=== PATIENT | male | born 1975 | race Two or more races ===

== ENCOUNTER 2018-09-26 10:23 | Inpatient (IN) | payer MEDICAID ==
[~2018-09-26] VITALS: Ht 167.6 cm; Wt 69.9 kg
[2018-09-26 13:08] LABS: BASOPHILS % 0.9 % (0.0-2.0); EOSINOPHILS % 14.5 % (0.0-5.0); HEMATOCRIT. 35.8 % (42.0-52.0); HEMOGLOBIN. 11.9 g/dL (14.0-18.0); LYMPHOCYTES % 21.1 % (20.0-50.0); MEAN CORPUSCULAR HEMOGLOBIN 31.2 pg (28.0-32.0); MEAN CORPUSCULAR VOLUME 93.6 fL (80.0-94.0); MONOCYTES % 5.4 % (2.0-8.0); NEUTROPHILS % 58.1 % (40.0-76.0); PLATELET 277 x1000/uL (130-400); RED BLOOD CELL COUNT 3.83 mill/uL (4.7-6.1); RED CELL DISTRIBUTION WIDTH 15.6 % (11.6-14.6)
[2018-09-26 13:15] LABS: CHLORIDE 100 mEq/L (98-107)
[2018-09-26 13:17] LABS: INR 1.1; PARTIAL THROMBOPLASTIN TIME 27.9 sec (23.4-31.0); PROTHROMBIN TIME 11.1 sec (9.6-11.0)
[2018-09-26] MEDS ORDERED: SODIUM POLYSTYRENE SULFONATE 15 G/60 ML BOT PO ONE (13:30)
[2018-09-26] MEDS ORDERED: CALCIUM CHLORIDE 1GM/10ML SYR IV ONE (13:30)
[2018-09-26] MEDS ORDERED: DEXTROSE 50% WATER 50ML SYRINGE IV ONE (13:30)
[2018-09-26] MEDS ORDERED: SODIUM BICARBONATE 8.4% 1 MEQ/ML 50ML SYR IV ONE (13:30)
[2018-09-26] MEDS ORDERED: INSULIN REGULAR (HUMULIN R) 300UNITS/3ML IV ONE (13:30)
[2018-09-26] MEDS ORDERED: ALBUTEROL (0.083%) 2.5MG/3ML NEB HHN ONE (13:30)
[2018-09-26] MEDS ORDERED: ACETAMINOPHEN 325MG TABLET PO PRN (14:45)
[2018-09-26] MEDS ORDERED: ONDANSETRON HCL 4MG/2ML INJ IV PRN (14:45)
[2018-09-26] MEDS ORDERED: CLONIDINE 0.1MG TABLET PO PRN (14:45)
[2018-09-26] MEDS ORDERED: LOSARTAN POTASSIUM 100 MG TABLET PO SCH (18:00)
[2018-09-26 20:00] VITALS: BP 170/107
[2018-09-26] MEDS: AMLODIPINE 5MG TABLET PO SCH (21:00)
[2018-09-27] VITALS: BP 151/74
[2018-09-27 04:00] VITALS: BP 162/72
[2018-09-27] MEDS ORDERED: LOSA25TA12 PO (04:23)
[2018-09-27] MEDS ORDERED: CALC667T5 PO (04:24)
[2018-09-27] MEDS ORDERED: NEPVIT MT (04:25)
[2018-09-27] MEDS ORDERED: CARV3.1242 PO (04:28)
[2018-09-27 07:43] LABS: BASOPHILS % 0.8 % (0.0-2.0); EOSINOPHILS % 11.1 % (0.0-5.0); HEMATOCRIT. 34.2 % (42.0-52.0); HEMOGLOBIN. 11.5 g/dL (14.0-18.0); LYMPHOCYTES % 17.7 % (20.0-50.0); MEAN CORPUSCULAR HEMOGLOBIN 31.3 pg (28.0-32.0); MEAN CORPUSCULAR VOLUME 93.2 fL (80.0-94.0); MEAN PLATELET VOLUME 7.4 fl (7.4-10.4); MONOCYTES % 6.1 % (2.0-8.0); NEUTROPHILS % 64.3 % (40.0-76.0); PLATELET 285 x1000/uL (130-400); RED BLOOD CELL COUNT 3.67 mill/uL (4.7-6.1); RED CELL DISTRIBUTION WIDTH 15.6 % (11.6-14.6)
[2018-09-27 08:00] VITALS: BP 107/56
[2018-09-27] MEDS: AMLODIPINE 5MG TABLET PO SCH (08:29)
[2018-09-27 10:57] VITALS: BP 107/56
[2018-09-27 12:00] VITALS: BP 125/65
== END 2018-09-27 12:58 | disposition home or self-care (01) | DRG 425 ==
LOC: ER 10:23 → 6WST 14:05 → ENRESERV 15:21
PROVIDERS: ADMIT Internal Medicine; ATTEND Internal Medicine
PROC: 5A1D70Z Performance of Urinary Filtration, Intermittent, Less than 6 Hours Per Day (ICD-10-PCS; principal; 2018-09-26)
DX: E87.5 Hyperkalemia (principal); I12.0 Hypertensive chronic kidney disease with stage 5 chronic kidney disease or end stage renal disease; N18.6 End stage renal disease; D63.8 Anemia in other chronic diseases classified elsewhere; Z99.2 Dependence on renal dialysis
CPT/HCPCS: 36415; 71045; 80048; 83880; 84484; 93005; 93970; 94644; 96374; 96375; 99285; J1815; J3490; J7611

== ENCOUNTER 2019-12-28 19:28 | Emergency (ER) | payer MEDICAID ==
[~2019-12-28] VITALS: Ht 154.9 cm; Wt 58.0 kg
[~2019-12-28 19:28] MED LIST: CALC667T6 PO; CARV3.1242 PO; LOSA25TA26 PO; NEPVIT MT
[2019-12-28] MEDS ORDERED: HYDROCODONE/ACETAMINOPHEN 5/325MG TABLET PO ONE (20:30)
[2019-12-28 23:14] VITALS: BP 132/83
== END 2019-12-28 23:15 | disposition home or self-care (01) ==
LOC: ER 19:28
DX: M25.562 Pain in left knee (principal); M25.561 Pain in right knee; I12.0 Hypertensive chronic kidney disease with stage 5 chronic kidney disease or end stage renal disease; N18.6 End stage renal disease; Z79.899 Other long term (current) drug therapy; Z98.890 Other specified postprocedural states; Z99.2 Dependence on renal dialysis; Z95.5 Presence of coronary angioplasty implant and graft
CPT/HCPCS: 73562; 99283

== ENCOUNTER 2019-12-29 22:54 | Emergency (ER) | payer MEDICAID ==
[~2019-12-29] VITALS: Ht 177.8 cm; Wt 54.0 kg
[2019-12-29] MEDS ORDERED: METHOCARBAMOL 750MG TABLET PO SCH (23:15)
[2019-12-29] MEDS ORDERED: ACETAMINOPHEN WITH CODEINE 300/30MG TABLET PO ONE (23:15)
[2019-12-29] MEDS ORDERED: KETOROLAC 30MG/ML VIAL IV ONE (23:15)
[2019-12-29 23:40] LABS: CHLORIDE 95 mEq/L (98-107)
[2019-12-30 00:33] LABS: BASOPHILS % 0.5 % (0.0-2.0); EOSINOPHILS % 8.9 % (0.0-5.0); HEMATOCRIT. 42.4 % (42.0-52.0); HEMOGLOBIN. 14.2 g/dL (14.0-18.0); LYMPHOCYTES % 7.7 % (20.0-50.0); MEAN CORPUSCULAR HEMOGLOBIN 32.4 pg (28.0-32.0); MEAN CORPUSCULAR VOLUME 96.4 fL (80.0-94.0); NEUTROPHILS % 78.9 % (40.0-76.0); PLATELET 180 x1000/uL (130-400); RED BLOOD CELL COUNT 4.39 mill/uL (4.7-6.1); RED CELL DISTRIBUTION WIDTH 14.6 % (11.6-14.6)
[2019-12-30 03:54] VITALS: BP 121/70
== END 2019-12-30 04:05 | disposition home or self-care (01) ==
LOC: ER 22:54
DX: M25.562 Pain in left knee (principal); M25.561 Pain in right knee; I12.0 Hypertensive chronic kidney disease with stage 5 chronic kidney disease or end stage renal disease; N18.6 End stage renal disease; Z99.2 Dependence on renal dialysis
CPT/HCPCS: 36415; 73562; 80053; 84484; 85025; 96374; 99285; J1885

== ENCOUNTER 2020-10-27 14:13 | Emergency (ER) | payer MEDICAID, OTHER ==
[~2020-10-27] VITALS: Ht 175.3 cm; Wt 69.0 kg
[2020-10-27] MEDS ORDERED: HYDROCODONE/ACETAMINOPHEN 5/325MG TABLET PO STA (14:32)
[2020-10-27] MEDS ORDERED: HYDR-4001 MT (14:45)
[2020-10-27 15:05] VITALS: BP 151/88
== END 2020-10-27 15:18 | disposition home or self-care (01) ==
LOC: ER 14:13
DX: M54.9 Dorsalgia, unspecified (principal); I10 Essential (primary) hypertension; Z98.890 Other specified postprocedural states
CPT/HCPCS: 71045; 99283

== ENCOUNTER 2021-05-20 15:44 | Emergency (ER) | payer MEDICAID, OTHER ==
[~2021-05-20] VITALS: Ht 165.1 cm; Wt 66.0 kg
[~2021-05-20 15:44] MED LIST changes: +HYDR-4001 MT
[2021-05-20 15:51] VITALS: BP 140/81
[2021-05-20] MEDS ORDERED: ACETAMINOPHEN 325MG TABLET PO ONE (17:45)
[2021-05-20] MEDS ORDERED: TOPUD MT (20:20)
== END 2021-05-20 21:20 | disposition home or self-care (01) ==
LOC: ER 15:44
DX: M25.561 Pain in right knee (principal)
CPT/HCPCS: 73562; 99283

== ENCOUNTER 2022-01-18 09:39 | Emergency (ER) | payer OTHER ==
[~2022-01-18] VITALS: Ht 177.8 cm; Wt 75.0 kg
[~2022-01-18 09:39] MED LIST changes: +TOPUD MT
[2022-01-18] MEDS ORDERED: VANCOMYCIN 1G PREMIX 200 ML IV SCH (12:15)
[2022-01-18] MEDS ORDERED: PIPERACILLIN/TAZ 3.375G PREMIX 50 ML IV ONE (12:15)
[2022-01-18 12:29] LABS: HEMATOCRIT. 37.2 % (42.0-52.0); HEMOGLOBIN. 12.3 g/dL (14.0-18.0); MEAN CORPUSCULAR HEMOGLOBIN 31.8 pg (28.0-32.0); MEAN CORPUSCULAR VOLUME 96.4 fL (80.0-94.0); MEAN PLATELET VOLUME 7.1 fl (7.4-10.4); PLATELET 172 x1000/uL (130-400); RED BLOOD CELL COUNT 3.86 mill/uL (4.7-6.1); RED CELL DISTRIBUTION WIDTH 15.2 % (11.6-14.6)
[2022-01-18 12:37] LABS: CHLORIDE 97 mEq/L (98-107)
[2022-01-18 12:40] LABS: PROTHROMBIN TIME 10.9 sec (9.6-11.0)
[2022-01-18] MEDS ORDERED: CEPH500C2 MT (13:41)
[2022-01-18 13:47] VITALS: BP 164/91
[2022-01-18 14:14] LABS: PLATELET ESTIMATE NORMAL
== END 2022-01-18 14:07 | disposition home or self-care (01) ==
LOC: ER 09:39 → CANBEDREQ 14:26
DX: M79.672 Pain in left foot (principal); I10 Essential (primary) hypertension; Z79.899 Other long term (current) drug therapy
CPT/HCPCS: 36415; 73630; 80053; 85025; 85610; 86850; 86900; 86901; 87040; 96365; 96368; 99284; J2543; J3370

== ENCOUNTER 2022-02-11 14:22 | Emergency (ER) | payer OTHER ==
[~2022-02-11] VITALS: Ht 165.1 cm; Wt 70.0 kg
[~2022-02-11 14:22] MED LIST changes: +CEPH500C2 MT
[2022-02-11 14:33] VITALS: BP 189/87
== END 2022-02-11 18:20 | disposition home or self-care (01) ==
LOC: ER 14:22
DX: B07.0 Plantar wart (principal); I12.0 Hypertensive chronic kidney disease with stage 5 chronic kidney disease or end stage renal disease; N18.6 End stage renal disease; Z99.2 Dependence on renal dialysis
CPT/HCPCS: 99281

== ENCOUNTER 2023-09-22 19:21 | Emergency (ER) | payer MEDICAID, OTHER ==
[~2023-09-22] VITALS: Ht 167.6 cm; Wt 58.0 kg
[2023-09-22 19:27] VITALS: O2SAT 97
[2023-09-22] MEDS: ACETAMINOPHEN 325MG TABLET PO ONE (20:40)
[2023-09-22 21:17] VITALS: BP 133/85; PULSE 80; RESP 15; TEMP 98.1
== END 2023-09-22 21:27 | disposition home or self-care (01) ==
LOC: ER 19:21
DX: M79.642 Pain in left hand (principal); M79.641 Pain in right hand; M17.0 Bilateral primary osteoarthritis of knee; I12.0 Hypertensive chronic kidney disease with stage 5 chronic kidney disease or end stage renal disease; N18.6 End stage renal disease; Z99.2 Dependence on renal dialysis
CPT/HCPCS: 73130; 73562; 99284